=== PATIENT | female | born 1975 | race Caucasian/White ===

== ENCOUNTER 2017-05-07 21:06 | Emergency (ER) | payer BC ==
[2017-05-07 21:29] VITALS: RESP 16
--- NOTE | 2017-05-07 21:49 | XR ---
EXAMINATION TYPE: XR knee complete LT DATE OF EXAM: 05/07/2017 COMPARISON: NONE HISTORY: Knee pain TECHNIQUE: Previews FINDINGS: I see no fracture nor dislocation. Joint spaces are normal. There is no sign of knee joint effusion. IMPRESSION: Negative left knee exam
--- NOTE | 2017-05-07 22:04 | ED ---
General Adult HPI - General Chief complaint: Extremity Injury, Lower Stated complaint: Left knee Injury Time Seen by Provider: 05/07/17 21:32 Source: patient, RN notes reviewed Mode of arrival: ambulatory Limitations: no limitations - History of Present Illness Initial comments: 41-year-old female presents for left knee pain. Patient is chronically had some left irritation for the last year or so but today she was doing leg extension and she felt a pop in her knee and since it is just been painful enough study. Patient is able to ambulate it just causes her some discomfort. Patient denies any pain radiating to the hip. Patient denies any numbness and tingling. Patient denies any deformity.Patient denies any recent fever, chills , shortness of breath, chest pain, back pain, abdominal pain, nausea vomiting, numbness or tingling, dysuria or hematuria, constipation or diarrhea, headaches or visual changes, or any other current symptoms. - Related Data Allergies Allergy/AdvReac Type Severity Reaction Status Date / Time No Known Allergies Allergy Verified 05/07/17 21:28 Review of Systems ROS Statement: Those systems with pertinent positive or pertinent negative responses have been documented in the HPI. ROS Other: All systems not noted in ROS Statement are negative. Past Medical History Past Medical History: Hypertension History of Any Multi-Drug Resistant Organisms: None Reported Past Surgical History: No Surgical Hx Reported Past Psychological History: No Psychological Hx Reported Smoking Status: Never smoker Past Alcohol Use History: None Reported Past Drug Use History: None Reported General Exam - General Exam Comments Initial Comments: General: The patient is awake and alert, in no distress, and does not appear acutely ill. Neck: The neck is supple, there is no tenderness or JVD. Cardiovascular: There is a regular rate and rhythm. No murmur, rub or gallop is appreciated. Respiratory: Lungs are clear to auscultation, respirations are non-labored, breath sounds are equal. No wheezes, stridor, rales, or rhonchi. Musculoskeletal: Sensation intact with 2+ pulses of the left +. Patient has full range motion left knee with pain on full flexion. There is some tenderness patient of the base of the patella. No laxity noted. Negative special testing. No left ankle or left hip pain with full range of motion. Neurological: CN II-XII intact, There are no obvious motor or sensory deficits. Coordination appears grossly intact. Speech is normal. Skin: Skin is warm and dry and no rashes or lesions are noted. Psychiatric: Normal mood and affect. Limitations: no limitations Course Vital Signs 05/07/17 21:25 Pulse Rate 94 Respiratory 16 Rate Blood Pressure 133/83 O2 Sat by Pulse 99 Oximetry Procedures - Orthopedic Splinting/Casting Injury #1 Side: left Lower Extremity Injury Location: knee Lower Extremity Immobilizer: Reginald wrap Medical Decision Making - Medical Decision Making 41-year-old female presents to the emergency room chief complaint of left knee sprain. This time we discussed follow-up. We discussed return parameters. We discussed all the patient and family questions. Patient stated that he understood and he is in agreement plan. All questions have been answered. She' ll be discharged. - Radiology Data Radiology results: report reviewed, image reviewed Disposition Clinical Impression: Left knee sprain Disposition: HOME SELF-CARE Condition: Stable Instructions: Knee Sprain (ED) Additional Instructions: Please use medication as discussed. Please follow up with family doctor if symptoms have not improved over the next two days. Please return to the emergency room if your symptoms increase or worsen or for any other concerns. Referrals: Gopal Merchant III, MD [Primary Care Provider] - 1-2 days Wilton Mesa MD [STAFF PHYSICIAN] - 1-2 days Time of Disposition: 22:04
[2017-05-07 22:19] VITALS: BP 129/80; PULSE 80; TEMP 97.8
== END 2017-05-07 22:14 | disposition home or self-care (01) ==
LOC: EC 21:06
DX: S83.92XA Sprain of unspecified site of left knee, initial encounter (principal); X50.0XXA Overexertion from strenuous movement or load, initial encounter
CPT/HCPCS: 99283

== ENCOUNTER 2018-11-11 13:37 | Inpatient (IN) | payer OTHER ==
[2018-11-11] MEDS ORDERED: CARBOPROST TROMETHAMINE 250 MCG/ML 1 ML AMP IM PRN (14:09)
[2018-11-11] MEDS ORDERED: METHYLERGONOVINE 0.2 MG/ML 1 ML AMP IM PRN (14:09)
[2018-11-11] MEDS ORDERED: OXYTOCIN 10 UNIT/ML 1 ML VIAL IM PRN (14:09)
[2018-11-11] MEDS ORDERED: LIDOCAINE 0.5% (PF) 5 MG/ML (50 ML SDV) SQ PRN (14:09)
[2018-11-11] MEDS ORDERED: PENICILLIN G POTASSIUM 5,000,000 UNIT in DEXTROSE 5% IN WATER 100 ML IVPB STA ×2 (14:09)
[2018-11-11] MEDS ORDERED: TERBUTALINE 1 MG/ML VIAL SQ PRN (14:09)
[2018-11-11] MEDS ORDERED: OXYTOCIN 30 UNITS/500 ML NS 30 UNIT in SALINE 1 500ML.BAG IV SCH (14:15)
[2018-11-11] MEDS: LACTATED RINGERS 1,000 ML IV SCH ×2 (14:38→15:39)
[2018-11-11 14:44] LABS: Anisocytosis Moderate; Basophils % (A) 0 %; Eosinophils # (A) 0.3 k/uL (0-0.7); Eosinophils % (A) 3 %; Hypochromasia Slight; Lymphocytes # (A) 1.7 k/uL (1.0-4.8); Lymphocytes % (A) 18 %; MCH 27.6 pg (25.0-35.0); MCHC 32.2 g/dL (31.0-37.0); MCV 85.8 fL (80.0-100.0); Mean Platelet Volume 7.4; Monocytes # (A) 0.4 k/uL (0-1.0); Monocytes % (A) 4 %; Neutrophils # (A) 7.2 k/uL (1.3-7.7); Neutrophils % (A) 75 %; Platelet Count 288 k/uL (150-450); RBC 3.61 m/uL (3.80-5.40); WBC 9.7 k/uL (3.8-10.6)
[2018-11-11 16:41] VITALS: BMI 28.9
--- NOTE | 2018-11-11 17:23 | P.HPOB ---
History of Present Illness H&P Date: 11/11/18 Chief Complaint: My water broke at 1:00 This is a 43-year-old white female 5 para 4004 EDC 11/21/2018 at 38-4/7 weeks' gestation. Patient presents with a history of her water leaking, clear fluid, since 1 PM. Mild irregular uterine contractions to follow. Fetus is been active throughout the . She denies vaginal bleeding. Social history patient is , she smoked as a teenager, she is employed at a local [employer]. Past medical history is significant only for carpal tunnel syndrome during pregnancies. Past surgical history is negative. ALLERGIES none known. Family history significant for congestive heart failure, diabetes, heart disease, hypertension, neuropathy. Obstetric history is significant for blood type O+, rubella status immune. [place] strep cultures positive. Hepatitis B surface antigen, urine culture, HIV testing, gonorrhea and chlamydia cultures all negative. One-hour Glucola 105. Hemoglobin 7.9. On exam this is a pleasant white female who is 5 foot 2 inches, 158 pounds, blood pressure 150/83 on admission, subsequently decreased. The general physical exam is within normal limits. The cervix is 1 cm dilated, long, and -2 station, vertex presentation with clear fluid noted. heart rate is con sistent with reactive NST. Impression: Advanced maternal age, 38-4/7 weeks intrauterine , spontaneous amniorrhexis, not in labor, positive group B strep cultures noted. Plan: Penicillin G prophylaxis has artery been started. Oxytocin per hospital protocol with close maternal and surveillance. Anticipate normal spontaneous vaginal delivery. Review of Systems Constitutional: Reports as per HPI Past Medical History Past Medical History: Hypertension History of Any Multi-Drug Resistant Organisms: None Reported Past Surgical History: No Surgical Hx Reported Past Anesthesia/Blood Transfusion Reactions: No Reported Reaction Past Psychological History: No Psychological Hx Reported Smoking Status: Never smoker Past Alcohol Use History: None Reported Past Drug Use History: None Reported - Past Family History Father Family Medical History: Congestive Heart Failure (CHF), Coronary Artery Disease (CAD), Diabetes Mellitus, Hypertension Medications and Allergies Allergies Allergy/AdvReac Type Severity Reaction Status Date / Time No Known Allergies Allergy Verified 10/23/18 10:22 Exam Vital Signs Temp Pulse Resp BP Pulse Ox 11/11/18 16:36 99.1 F 90 16 133/81 11/11/18 13:47 98 F 114 H 16 150/83 97 Intake and Output 11/11/18 11/11/18 11/11/18 06:59 14:59 22:59 Other: Weight 71.668 kg See dictation under HPI please Results Result Diagrams: 11/11/18 14:25 Abnormal Lab Results - Last 24 Hours (Table) 11/11/18 Range/Units 14:25 RBC 3.61 L (3.80-5.40) m/uL Hgb 10.0 L (11.4-16.0) gm/dL Hct 31.0 L (34.0-46.0) % RDW 20.0 H (11.5-15.5) % Assessment and Plan Assessment: 38-4/7 weeks intrauterine , spontaneous amniorrhexis, positive group B strep cultures, advanced maternal age Plan: Continue penicillin prophylaxis as previously ordered. Oxytocin per hospital protocol. Close maternal and surveillance. Anticipate normal spontaneous vaginal delivery. Time with Patient: Less than 30
[2018-11-11] MEDS: PENICILLIN G POTASSIUM 2,500,000 UNIT in DEXTROSE 5% IN WATER 100 ML IVPB SCH ×4 (19:33→23:24)
[2018-11-11] MEDS ORDERED: ZOLPIDEM 10 MG TAB PO PRN (21:28)
[2018-11-11] MEDS: BUTORPHANOL 1 MG/ML 1 ML VIAL IV PRN (22:37)
[2018-11-12] MEDS: BUTORPHANOL 1 MG/ML 1 ML VIAL IV PRN ×3 (00:32→12:16)
[2018-11-12] MEDS: PENICILLIN G POTASSIUM 2,500,000 UNIT in DEXTROSE 5% IN WATER 100 ML IVPB SCH ×6 (03:17→12:07)
[2018-11-12] MEDS: LACTATED RINGERS 1,000 ML IV SCH (08:22)
[2018-11-12] MEDS: OXYTOCIN 20 UNITS/1000 ML NS 1,000 ML IV SCH ×2 (13:09→14:06)
[2018-11-12] MEDS ORDERED: ZOLPIDEM 5 MG TAB PO PRN (13:22)
[2018-11-12] MEDS ORDERED: SIMETHICONE 80 MG CHEWABLE PO PRN (13:22)
[2018-11-12] MEDS ORDERED: LANOLIN CREAM 5 GM TUBE TOPICAL PRN (13:22)
[2018-11-12] MEDS ORDERED: diphenhydrAMINE 50 MG CAP PO PRN (13:22)
[2018-11-12] MEDS ORDERED: HYDROCORTISONE 2.5% RECTAL CREAM 30 GM TUBE RECTAL PRN (13:22)
[2018-11-12] MEDS ORDERED: WITCH HAZEL 1 EACH MED..PAD TOPICAL PRN (13:22)
[2018-11-12] MEDS ORDERED: BENZOCAINE/MENTHOL SPRAY 1 GM/SPRAY AEROSOL TOPICAL PRN (13:22)
[2018-11-12] MEDS ORDERED: ACETAMINOPHEN TAB 325 MG TAB PO PRN (13:22)
[2018-11-12] MEDS ORDERED: diphenhydrAMINE 50 MG/ML 1 ML VIAL IVP PRN ×2 (13:22)
[2018-11-12] MEDS ORDERED: IBUPROFEN 600 MG TAB PO PRN (13:22)
[2018-11-12] MEDS ORDERED: diphenhydrAMINE 25 MG CAP PO PRN (13:22)
--- NOTE | 2018-11-12 13:22 | P.PROBDLV ---
Vaginal Delivery Note - . Vaginal Delivery Note: This is a 43-year-old female 5 para 4004 EDC 11/21/2018 at 38-4/7 weeks. Patient presented yesterday with spontaneous amniorrhexis which occurred at home, verified. Cervix is 1 cm dilated, 50% effaced, vertex presentation. History significant for positive group B strep cultures, blood type O+, rubella status immune, advanced maternal age. Please see my dictated history and physical for details. Yesterday afternoon oxytocin was started and titrated. After several hours of augmentation, and Pitocin at 17 milliunits, no cervical change was noted despite uterine contractions every 2 minutes apart. For that reason last night at 9 PM the oxytocin was discontinued. Patient was allowed to rest through the night. Penicillin G prophylaxis has been given every 8 hours since admission, multiple doses received. This morning oxytocin was restarted in active labor commenced. She has received 5 doses of penicillin G totally. She became completely dilated at 1304 hrs. Perineal body was prepped and draped in usual sterile fashion. With excellent maternal expulsive efforts the head delivered occiput anterior. She restituted accordingly. There was no nuchal cord noted. The posterior shoulder was delivered at which time the oropharynx, nasopharynx, and external nares were all bulb suctioned on the perineal body. Patient is officially delivered of a liveborn female infant at 1306 hrs. Umbilical cord is doubly clamped and ligated, she is handed to waiting nurses for evaluation where scores of 78 and 9 at one and 5 and 10 minutes respectively are given. The uterus is massaged. Placenta is delivered spontaneously, it is inspected and noted to be intact with trivascular cord at 1309 hrs. At this time inspection of the cervix, vagina, perineum, periurethral, and perirectal areas is thoroughly performed. There are no lacerations or defects noted. Fundus is firm and in the midline, symmetric and 18 week size. All sponge needle and enhancement counts are correct at the end of the procedure. Patient and her family are allowed to begin the bonding experience in the LDR. weighs 7 lbs. 11 oz. or 3475 g. Total estimated blood loss 250 mL's.
[2018-11-12] MEDS: SENNOSIDES-DOCUSATE SODIUM 1 EACH TAB PO SCH (21:25)
--- NOTE | 2018-11-13 07:54 | P.DS ---
Providers Date of admission: 11/11/18 14:08 Expected date of discharge: 11/13/18 Attending physician: Deidre Farley Primary care physician: Stated None Hospital Course: This is a 43-year-old white female 5 para 4004 EDC 11/21/2017 at 38-4/7 weeks' gestation. Patient presented with spontaneous amniorrhexis which occurred at home. is remarkable for positive group B strep cultures, rubella status immune, blood type O+. Advanced maternal age is also noted. Please see dictated history and physical for details. Initially oxytocin was started and titrated through the day. However by 9 PM, no cervical change was noted. Oxytocin was therefore discontinued and patient was allowed to rest through the night. The following morning it was restarted. Patient went on to deliver a liveborn female with scores of 7 and 8 and 9 at one and 5 and 10 minutes respectively. weighed 7 lbs. 11 oz. or 3475 g. Patient received 5 doses of penicillin G throughout her stay here for group B strep prophylaxis. Estimated blood loss recorded of 250 mL's. Intact perineal body. Please see dictated delivery note for details. This morning the patient is doing well. She is voiding, ambulating and passing flatus without difficulty. Vital signs are stable and she is afebrile. Fundus is firm and in the midline, symmetric and 18 week size. Extremities reveal no edema. Chest is clear in all biswas. Lorida infant is doing well. Patient is judged to be in very good condition for discharge home. She is being discharged home with instructions to follow-up with me in the office in 6 weeks. We have briefly discussed options for contraception and we will discuss this further in the office. She is reminded no intercourse, tampons or douching. She will use [id number] ibuprofen products, 200 mg pills, 3 every 6 hours as needed. She will call with any fevers shakes or chills, foul smelling or copious lochia, with the passage of large blood clots, with any pain not alleviated by [id number] products, or indeed with any concerns. Lorida infant will follow-up with green feed attendant as recommended. Patient Condition at Discharge: Good Plan - Discharge Summary Discharge Rx Participant: No Follow up Appointment(s)/Referral(s): Deidre Farley MD [STAFF PHYSICIAN] - 6 Weeks Discharge Disposition: HOME SELF-CARE
[2018-11-13 07:59] LABS: Anisocytosis Moderate; Basophils % (A) 0 %; Eosinophils # (A) 0.1 k/uL (0-0.7); Eosinophils % (A) 1 %; HCT 26.9 % (34.0-46.0); Hypochromasia Moderate; Lymphocytes # (A) 1.2 k/uL (1.0-4.8); Lymphocytes % (A) 9 %; MCH 27.3 pg (25.0-35.0); MCHC 31.7 g/dL (31.0-37.0); MCV 86.2 fL (80.0-100.0); Mean Platelet Volume 7.6; Monocytes # (A) 0.6 k/uL (0-1.0); Monocytes % (A) 4 %; Neutrophils # (A) 11.3 k/uL (1.3-7.7); Neutrophils % (A) 85 %; Platelet Count 207 k/uL (150-450); RBC 3.12 m/uL (3.80-5.40); RDW 20.1 % (11.5-15.5); WBC 13.3 k/uL (3.8-10.6)
[2018-11-13 08:03] LABS: HGB 8.5 gm/dL (11.4-16.0)
[2018-11-13] MEDS: SENNOSIDES-DOCUSATE SODIUM 1 EACH TAB PO SCH (09:45)
[2018-11-13 10:22] VITALS: RESP 18
[2018-11-13 12:32] VITALS: BP 114/75; PULSE 86
[2018-11-13 13:01] VITALS: TEMP 99.8
== END 2018-11-13 15:33 | disposition home or self-care (01) | DRG 807 ==
LOC: FBPOP 13:37 → 4FBP 14:08
PROVIDERS: ADMIT Obstetrics & Gynecology; ATTEND Obstetrics & Gynecology
PROC: 10E0XZZ Delivery of Products of Conception, External Approach (ICD-10-PCS; principal; 2018-11-12)
DX: O99.824 Streptococcus B carrier state complicating childbirth (principal); Z37.0 Single live birth; Z3A.38 38 weeks gestation of pregnancy; Z82.49 Family history of ischemic heart disease and other diseases of the circulatory system; Z83.3 Family history of diabetes mellitus; Z87.891 Personal history of nicotine dependence; Z86.79 Personal history of other diseases of the circulatory system
CPT/HCPCS: 59025; 85025; 86850; 86900; 86901; 99213